=== PATIENT | female | born 2000 | race Caucasian/White ===

== ENCOUNTER 2025-05-23 15:00 | Outpatient (CLI) | payer MEDICAID, SELFPAY ==
[2025-05-23 15:28] VITALS: BP 116/60; PULSE 83; RESP 16; TEMP 36.5
[2025-05-23 15:35] VITALS: BMI 34.0
--- NOTE | 2025-06-06 12:57 | OB.TRI.HP_ITS ---
HPI - General HPI Narrative HILDA SIGALA, is a 24 F who presents [ presents for decreased movement. ] PFSH PFSH Home Medications ?Medication ?Instructions ?Recorded ?Last Taken ?Type vit no.95-ferrous 1 tab PO DAILY 05/23/25 Unk nown History fumarate 28 mg-folic acid 800 mcg tablet () Allergy/AdvReac Type Severity Reaction Status Date / Time No Known Allergies Allergy Verified 05/23/25 15:33 NST FHR Rate Baby A Baseline: 135 Variability:: Moderate Accelerations:: 15 x 15 Decelerations:: None NST Reactive:: Yes Assessment & Plan (1) Decreased movement: PLAN: Plan NST reactive D/C home
== END 2025-05-23 16:10 | disposition home or self-care (01) ==
LOC: WPOUT 15:20 → WP 15:24
PROVIDERS: Referring Provider Obstetrics & Gynecology; Visit Provider Obstetrics & Gynecology
DX: O36.8190 Decreased fetal movements, unspecified trimester, not applicable or unspecified (principal); Z3A.00 Weeks of gestation of pregnancy not specified
CPT/HCPCS: 59025; 59050; 99221; G0378